=== PATIENT | male | born 1945 | race Caucasian/White ===

== ENCOUNTER → 2022-05-20 13:21 | Outpatient (BNVA) | payer MEDICARE, SELFPAY | PROVIDERS: PCP Internal Medicine; Visit Provider Dietitian, Registered | DX: E46 Unspecified protein-calorie malnutrition (principal) | CPT/HCPCS: 97802 ==

== ENCOUNTER → 2022-11-18 13:56 | Outpatient (BNVA) | payer MEDICARE, SELFPAY | PROVIDERS: PCP Internal Medicine; Visit Provider Dietitian, Registered | DX: E46 Unspecified protein-calorie malnutrition (principal); I10 Essential (primary) hypertension; E78.5 Hyperlipidemia, unspecified; Z90.49 Acquired absence of other specified parts of digestive tract; Z90.3 Acquired absence of stomach [part of]; Z71.3 Dietary counseling and surveillance | CPT/HCPCS: 97803 ==